=== PATIENT | female | born 2000 | race Caucasian/White ===

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

== ENCOUNTER → 2021-01-07 10:12 | Outpatient (BNVA) | payer BC, MEDICAID, SELFPAY | PROVIDERS: PCP Family Medicine; Visit Provider Obstetrics & Gynecology | DX: O99.013 Anemia complicating pregnancy, third trimester (principal); O26.849 Uterine size-date discrepancy, unspecified trimester; B00.9 Herpesviral infection, unspecified; O98.519 Other viral diseases complicating pregnancy, unspecified trimester; F32.9 Major depressive disorder, single episode, unspecified; Z28.3 Underimmunization status; A74.9 Chlamydial infection, unspecified; O99.340 Other mental disorders complicating pregnancy, unspecified trimester; Z3A.00 Weeks of gestation of pregnancy not specified | CPT/HCPCS: 81000 ==

== ENCOUNTER → 2021-01-20 13:57 | Outpatient (BNVA) | payer BC, MEDICAID, SELFPAY | PROVIDERS: PCP Family Medicine; Visit Provider Obstetrics & Gynecology | DX: O36.5990 Maternal care for other known or suspected poor fetal growth, unspecified trimester, not applicable or unspecified (principal); A74.9 Chlamydial infection, unspecified; O99.013 Anemia complicating pregnancy, third trimester; Z3A.00 Weeks of gestation of pregnancy not specified | CPT/HCPCS: 81000; 87081; 87491 ==

== ENCOUNTER → 2021-01-23 10:50 | Outpatient (BNVA) | payer BC, MEDICAID, SELFPAY | PROVIDERS: PCP Family Medicine; Visit Provider Obstetrics & Gynecology | DX: Z34.90 Encounter for supervision of normal pregnancy, unspecified, unspecified trimester (principal) | CPT/HCPCS: 81000 ==

== ENCOUNTER → 2021-01-27 08:47 | Outpatient (BNVA) | payer BC, MEDICAID, SELFPAY | PROVIDERS: PCP Family Medicine; Visit Provider Obstetrics & Gynecology | DX: O36.5990 Maternal care for other known or suspected poor fetal growth, unspecified trimester, not applicable or unspecified (principal) | CPT/HCPCS: 81000 ==

== ENCOUNTER → 2021-02-03 08:00 | Outpatient (BNVA) | payer BC, MEDICAID, SELFPAY | PROVIDERS: PCP Family Medicine; Visit Provider Obstetrics & Gynecology | DX: O36.5930 Maternal care for other known or suspected poor fetal growth, third trimester, not applicable or unspecified (principal); O99.820 Streptococcus B carrier state complicating pregnancy; O99.013 Anemia complicating pregnancy, third trimester; O98.519 Other viral diseases complicating pregnancy, unspecified trimester; F32.9 Major depressive disorder, single episode, unspecified; O99.340 Other mental disorders complicating pregnancy, unspecified trimester; B00.9 Herpesviral infection, unspecified; Z28.3 Underimmunization status; A74.9 Chlamydial infection, unspecified; Z3A.00 Weeks of gestation of pregnancy not specified | CPT/HCPCS: 81000 ==

== ENCOUNTER 2021-02-05 20:44 | Inpatient (IN) | payer BC, MEDICAID, SELFPAY ==
[2021-02-05 20:21] VITALS: BMI 24.2
[2021-02-05 20:23] VITALS: BP 133/80; PULSE 90
[2021-02-05 20:28] VITALS: TEMP 36.8
[2021-02-05 20:41] VITALS: RESP 18
[2021-02-05] MEDS: ampicillin 2,000 MG in sodium chloride 0.9% (plus) 50 ML 100 MG IV (21:15)
[2021-02-05] MEDS: dextrose 5%-lactated ringers 1,000 ML 125 ML IV (21:16)
[2021-02-05 21:22] LABS: Basophils # 0.1 10^3/uL (0.0-0.1); Basophils % 0.3 %; Eosinophils # 0.2 10^3/uL (0.0-0.8); Eosinophils % 0.9 %; Hematocrit 35.5 % (37.0-47.0); Hemoglobin 11.9 g/dL (11.5-15.3); Lymphocytes # 3.5 10^3/uL (1.5-6.5); Lymphocytes % 19.7 %; Mean Corpuscular HGB Conc 33.5 g/dL (30.0-36.0); Mean Corpuscular Hemoglobin 30.7 pg (28.0-34.0); Mean Corpuscular Volume 91.7 fL (81-99); Mean Platelet Volume 11.1 fL (7.4-10.4); Monocytes # 1.1 10^3/uL (0.2-0.9); Monocytes % 6.3 %; Neutrophils % 72.2 %; Nucleated Red Blood Cells % 0 %; Platelet Count 263 10^3/cmm (130-400); Red Blood Count 3.87 10^6/uL (4.1-5.3); Red Cell Distribution Width 14.6 % (12.1-15.1); White Blood Count 17.9 10^3/uL (4.5-13.0)
[2021-02-05 21:53] VITALS: BP 120/74; PULSE 76; TEMP 36.7
[2021-02-05 23:41] VITALS: BP 120/79; PULSE 72; TEMP 36.6
[2021-02-06] VITALS (46 sets, daily range): BP systolic 102–162; BP diastolic 53–102; PULSE 65–121; RESP 15–20; TEMP 36.4–37.9; O2SAT 93–100
[2021-02-06] MEDS: ampicillin 1,000 MG in sodium chloride 0.9% (plus) 50 ML 100 MG IV ×2 (00:21→04:01)
[2021-02-06] MEDS: oxytocin 30 UNIT/500 ML BAG IV (02:08)
[2021-02-06] MEDS: lactated ringers 1,000 ML 999 ML IV (02:16)
[2021-02-06] MEDS: fentaNYL 50 mcg/mL INJ 2mL IV (03:07)
--- NOTE | 2021-02-06 03:42 | ANES.PREANE2 ---
Pre-Anesthetic Assessment Pre-Anesthetic Assessment: Height/Weight: Height 1.5 m Weight 54.431 kg Temp Pulse Resp BP Pulse Ox 97.9 F 88 20 H 141/84 100 02/05/21 23:41 02/06/21 03:40 02/06/21 03:07 02/06/21 03:38 02/06/21 03:40 Social: Social History: No alcohol and No tobacco Exam: Pre-Anes Outpt Exam: alert and oriented x 3 Airway: Submandibular: WNL Cervical ROM: WNL MP: 2 History/ROS: No significant history except as noted GI: Comments: gastroschisis as child Neuropsych: Neuropsych: Depression Anesthetic Plan: ASA status: 2 Anesthesia: Anesthesia Evaluation and Regional (specify below) Other: labor epidural Risk of > 500 ml blood loss (7ml/kg in children): No Meds/Allergies Current Medications: Current Medications Generic Name Dose Route Start Last Admin Trade Name Freq PRN Reason Stop Dose Admin Fentanyl 25 - 100 mcg 02/06/21 02:54 02/06/21 03:07 Fentanyl 50 Mcg/ Ml Inj 2ml IV 25 mcg Q1H PRN Administration SEVERE PAIN Ampicillin Sodium 1,000 mg/ 50 mls @ 100 mls/ hr 02/06/21 00:45 02/06/21 00:21 Sodium Chloride IV 100 mls/hr Q4H PURVI Administration Protocol Dextrose/Lactated Ringer's 1,000 mls @ 125 m ls/hr 02/05/21 20:41 02/05/21 22:55 Dextrose 5%-Lact ated Ringers IV 0 mls/hr .Q8H PRN Infusion labor Lactated Ringer's 1,000 mls @ 999 m ls/hr 02/06/21 01:45 02/06/21 02:16 Lactated Ringers IV 999 mls/hr .Q1H1M PRN Administration See label comment s Oxytocin 30 unit in 500 ml s @ 1 mls/hr 02/06/21 01:45 02/06/21 02:08 Pitocin IV 1 milliunit/min .Q24H PURVI 1 mls/hr Administration Protocol 1 MILLIUNIT/MIN PFSH Anesthesia PFSH: Medical History 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 Denies any problems since then. No pertinent past medical history Denies diabetes, asthma, hypertension, seizures, DVT/PE PMD: none Surgical History History of intestinal surgery (~2000) born with gastroschisis--- had 3 abdominal surgeries to repair this when she was under 2-year-old. Denies any residual problems. History of orthopedic surgery 2019-fracture of left lower leg which was repaired surgically. Family History Mother Diabetes Hyperlipidemia Hypertension Denies family history of Colon cancer Ovarian cancer Heart disease Breast cancer Family history of thyroid problem Uterine cancer Stroke Social History Additional social history: - Tobacco use: Never Alcohol use: Never Drug use: Never Female Reproductive History: : 2 Data Anesthesia CBC & Chem 7: 02/05/21 21:00 Other Labs: Laboratory Results - last 48 hr 02/05/21 21:00 WBC 17.9 H RBC 3.87 L Hgb 11.9 Hct 35.5 L MCV 91.7 MCH 30.7 MCHC 33.5 RDW 14.6 Plt Count 263 MPV 11.1 H Neut % (Auto) 72.2 Lymph % (Auto) 19.7 [place] % (Auto) 6.3 Eos % (Auto) 0.9 Baso % (Auto) 0.3 Neut # (Auto) 12.90 H Lymph # (Auto) 3.5 [place] # (Auto) 1.1 H Eos # (Auto) 0.2 Baso # (Auto) 0.1 Nucleated RBC % (auto) 0 Nucleated RBCs # 0.0 Cardiac Studies: No Data to Display Anesthesia Procedures Date of Procedure: 02/06/21 Procedure Narrative: LABOR EPIDURAL Epidural: Time Out Performed: Yes Consents Signed: Procedure Consent Consent: from patient Lumbar Level: L3-L4 Epidural position: sitting Epidural procedure: sterile prep of area, 1% lidocaine to numb the area, 18 g needle, neg for paresthesia, test dose given, 1.5% xylocaine 1:200k epi (3 ML), 0.2% Ropivacaine bolus ml (5 ML), placed PCEA, no systemic response, sterile dressing applied, L.U.D. no apparent complications and 0.2% Ropiavacaine @ mls/hr (11) Additional Comments: R/B DISCUSSED. PATIENT WISHES TO PROCEED. SITS ON BED. STERILE PREP AND DRAPE WITH CHLORAPREP. LOSS OF RESISTANCE, CATH INSERTED TO 14 EASILY, NEG TEST DOSE, PT REPORTS PAIN RELIEF WITH TEST DOSE. BOLUS GIVEN. TOLERATED WELL. LOT [id number] EXP 2021-04-14
--- NOTE | 2021-02-06 04:56 | PM.DELIVERY ---
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 GBS prophylaxis was started. She received 3 doses of Ampicillin prior to delivery. She was given about 8 hours to labor on her own, but had no cervical change. Pitocin was begun a 1 Meq. She had complete cervical dilation Delivery: The patient had complete cervical dilation and as I was attempting to put on my gloves, seconds after entering the room, the head delivered. The nurse supported the head briefly and the body followed atraumatically making this a nurse delivery with physician present. The baby was vigorous at . She was placed onto the mother's abdomen and the cord clamped and cut. Inspection revealed a superficial supraurethral tear only. An intact placenta delivered spontaneously. Apgars on baby 8 t one minute and 9 at five minutes. weight 5#4oz. Mother and infant were stable post delivery Coding Level of Care Code Acute Lather Apprentice for Gonsalo Velez
--- NOTE | 2021-02-06 07:50 | PC.NURSE ---
note Mom has short mildly retractive nipples. Her nipples are compressible and elastic. Helped her with football hold and asymmetric latch. Baby seemed to be nursing well. Provided Understanding book and contact information.
--- NOTE | 2021-02-06 08:56 | PC.NURSE ---
PRECIPITOUS DELIVERY This patient arrived to the OB floor at 2009 on 02/05/21 complaining of leaking of fluid since approximately 1600 that day. SVE was completed upon arrival and patient was grossly ruptured with a positive nitrazine result and SVE of /0 station. Patient denied feeling any pain or contractions at this time. Patient was to be scheduled for an induction on 02/[address] Guillaume at 2034 - patient was to be admitted and intermittently monitored; if she did not progress on her own we would need to get orders for pitocin. At 13 - patient still denied contractions or mild discomfort but reported some pressure in her lower abdomen. SVE was conducted and 0 with no change. At 120 Patient called out stating that she felt pressure again and SVE completed by Bob De La Garza RN /2 however patient denied wanting anything for pain at this time and contractions were still irregular and palpating mild. At 134 -Dr Guillaume called in for an update and stated that patient could be started on moderate dose pitocin because she was not making change and may have an epidural when desired. Patient was educated by this nurse and Katerina De La Garza RN on how long it takes to get the epidural if she was wanting one and the process it takes. Patient was still unsure. At 239 - patient called out and reported that her pain had dramatically increased and she requested something for pain. She was putting herself into hands and knees in the bed and a FSE was applied with the SVE - /[address] Guillaume was called at that time to make aware of patient's affect seeming like she could transition at any point. Dr. Guillaume ordered that patient could have fentanyl protocol while she waits to get her epidural. Patient received her epidural and pump was turned on at 330. She was comfortable and resting. At 5 patient had a variable deceleration and this RN was at bedside and repositioned patient. At 406, patient had another variable decel and SVE was done. SVE was odd as cervix was thick from 12 to 6o'clock on right side, but was tucked back on side of head up against pelvic bone on left side. Approximately 6cm, patient was placed in left lateral with peanut ball to see if the cervix could be reduced on right side or that left side could be reached if there was movement of head with reposition. Patient stated that she was comfortable in that position and that she would try to rest. At 0425 - patient called nurse to her room and was moaning in pain stating that she had a lot more pressure. SVE - 10/100/+3. this nurse stayed at bedside and instructed Royer Huitron CST to call Dr. Guillaume and tell her we need her right now for delivery and SVE. At 0425 - Katerina de la garza called with report and was on her way. Patient was breathing through contractions. At 0436 - head was starting to have a small crown - this RN asked Krystle Bartholomew RN to call Dr. Guillaume and inquire whereabouts due to delivery being within next contraction or two. Dr. Guillaume stated she was in the stairwell at 0436 and arrived to floor at that same time. At 0437 she arrived into room and was attempting to get her gloves on when baby's head delivered at 0438, followed by a total delivery by Bob De La Garza RN with Dr. Guillaume there at bedside. Baby was placed on mom's chest. Dr. Guillaume clamped and cut the cord and baby. Baby's apgars were 8, 9.
[2021-02-06] MEDS: docusate sodium 100 mg Capsule PO ×2 (09:30→20:17)
[2021-02-06] MEDS: ibuprofen 800 mg tablet PO ×3 (09:31→20:17)
[2021-02-06] MEDS: prenatal vitamin Capsule 1 CAP PO (09:31)
[2021-02-06 19:11] LABS: Hematocrit 32.6 % (37.0-47.0); Hemoglobin 10.9 g/dL (11.5-15.3); Mean Corpuscular HGB Conc 33.4 g/dL (30.0-36.0); Mean Corpuscular Volume 92.6 fL (81-99); Platelet Count 222 10^3/cmm (130-400); Red Blood Count 3.52 10^6/uL (4.1-5.3); Red Cell Distribution Width 14.7 % (12.1-15.1); White Blood Count 23.1 10^3/uL (4.5-13.0)
[2021-02-07 06:15] VITALS: BP 108/65; PULSE 83
[2021-02-07] MEDS: lanolin oint 7 gm 1 APPLIC TOPICAL (06:39)
[2021-02-07 06:43] VITALS: RESP 18
[2021-02-07] MEDS: ibuprofen 800 mg tablet PO ×2 (10:03→16:33)
[2021-02-07] MEDS: docusate sodium 100 mg Capsule PO (10:03)
[2021-02-07] MEDS: prenatal vitamin Capsule 1 CAP PO (10:03)
--- NOTE | 2021-02-07 12:34 | P.DS_ITS ---
Discharge Providers DRIVER LICENSE EXAMINER Date of Admission: 02/05/21 20:44 Date of Discharge: 02/07/21 Attending Provider at Admission: Shaila Guillaume MD Attending Provider at Discharge: Jonah Beal MD Primary DRIVER LICENSE EXAMINER: Clark Lr MD Primary Care Provider: Madhavi Be MD Diagnoses at Discharge Discharge Diagnosis (1) Small for gestational age fetus affecting mother, delivered: Status: Acute (2) Group B Streptococcus carrier, delivered, current hospitalization: Status: Acute (3) Anemia during , delivered, current hospitalization: Status: Acute (4) Mental disorders of mother, with delivery: Status: Acute Reason for Visit Reason for Visit: POSS [facility] Hospital Course Hospital Course Patient is a 21-year-old female 2, para 0-0-1-0 with an LMP of 05/14/2020 and an EDC of 6 02/18/2021 based on LMP and consistent with 19-week ultrasound, which placed her at 38-2/7 weeks gestation at the time of delivery. Her care has been mainly provided by Dr. Lr. Her has been complicated by depression, anemia, and possible intrauterine growth restriction. She had also been found to be positive for GBS. She had a history of genital herpes and was on suppression with valacyclovir. She presented to labor and delivery in the evening of 02/05/2021 complaining of possible leaking fluid since approximately since approximately 16:00 on 02/05. She was found to be ruptured and was 2 cm and 95% effaced on admission. She was started on ampicillin for group B strep prophylaxis due to positive GBS status. She was monitored, but did not make any significant cervical change and as a result Pitocin was started at approximately 02:00 on 02/06/2021. By 02:42, she had started making cervical change and was then 4 cm dilated. She had epidural placed at approximately 03:30. By 04:11 she was 6 cm dilated and was completely dilated by 04:25. She delivered at 04:38 as a spontaneous vaginal delivery of an occiput anterior female infant over an intact perineum under epidural anesthesia. Baby weighed 5 pounds 4 ounces (2380 g) with length of 19 inches and Apgars of 8 at 1 minute an d 9 at 5 minutes. Mother and both did well following delivery. Day 1 Mother was without complaints. She was tolerating a regular diet without nausea or vomiting. Pain was well controlled on oral medications. She reported ambulating without lightheadedness or dizziness. She denied shortness of breath or chest pains. She denied problems with urination. She reported her bleeding had slowed. She was bottlefeeding. Physical exam: See below Plan Patient is being discharged with plan to room-in with baby (baby is not being released at this time due to small size). Discharge instructions were discussed with her. She was instructed to continue iron daily due to the anemia, she was also instructed to continue the fluoxetine, valacyclovir, and vitamins. She is to follow-up in the office with Dr. Lr for her 6 weeks exam. Information Peripartum Data: Delivery Method: Vaginal [place]: 1: Gender: Female Additional [place] Information: Baby weighed 5 pounds 4 ounces (2380 g) with length of 19 inches and Apgars of 8 at 1 minute and 9 at 5 minutes. Physical Exam Const: COMMON NORMALS: no acute distress, average body habitus, alert and well nourished GENERAL APPEARANCE: well developed ORIENTATION/CONSCIOUSNESS: Yes oriented to person, Yes oriented to place and Yes oriented to time Resp: COMMON NORMALS: normal respiratory effort and clear to auscultation bilaterally AUSCULTATION: clear to auscultation bilaterally Cardio: COMMON NORMALS: regular rate, regular rhythm, No gallops present (Cardio) and No rub (Cardio) RATE: regular rate RHYTHM: regular rhythm GI: COMMON NORMALS: Soft to palpation, non-tender, No hepatosplenomegaly present and no masses (Except for uterus) AUSCULTATION: Yes normoactive bowel sounds PALPATION: Yes Soft to palpation, Yes No hepatosplenomegaly present and No Hernia present : EXTERNAL FEMALE EXAM: No Hernia present Extremity: COMMON NORMALS: no calf tenderness NARRATIVE EXTREMITY EXAM: Trace to 1+ lower extremity edema bilaterally Neuro: SENSORIUM/ORIENTATION: Yes alert, Yes oriented to person, Yes oriented to place and Yes oriented to time Psych: COMMON NORMALS: normal affect MOOD & AFFECT: Yes euthymic mood Urinary Catheter Management^: Espinal: Cath Placed During This Visit: yes, but has since been removed by the nurse Reason for Continuing Indwelling Catheter: Required Immobilization for Trauma or Surgery or Anesthesia Urinary Catheter Date of Insertion: 02/06/21 Urinary Catheter Time of Insertion: 04:00 Date Urinary Catheter Removed: 02/06/21 Time Urinary Catheter Discontinued: 04:46 Discharge Data Data Completed and Pending: Labs from last 24 hours 02/06/21 18:24 WBC 23.1 H RBC 3.52 L Hgb 10.9 L Hct 32.6 L MCV 92.6 MCH 31.0 MCHC 33.4 RDW 14.7 Plt Count 222 MPV 11.0 H Vitals: Last Vital Signs Temp 98.3 F 02/06/21 21:56 Pulse 83 02/07/21 06:15 Resp 18 02/07/21 06:43 BP 108/65 02/07/21 06:15 Pulse Ox 99 02/06/21 21:56 Discharge Plan Discharge Patient Disposition: Home Condition: Stable Prescriptions: Continued prenat.vits,becca,hop-aeds-rpphk Tablet 1 tab PO DAILY RF: 0 valacyclovir [Valtrex] 500 mg tablet 500 mg PO BID Qty: 60 RF: 12 fluoxetine [Prozac] 20 mg capsule 20 mg PO DAILY Qty: 30 RF: 3 Changed ferrous sulfate 325 mg (65 mg iron) tablet,delayed release (DR/EC) 325 mg PO DAILY Qty: 0 RF: 0 Discharge Orders: Discharge Order (Routine); Ordered 02/07/21 Ordered By: Jonah Beal Referrals: Clark Fitzgerald MD [Physician] - 03/23/21 10:00 am ( exam) Discharge Diet: Regular Discharge Activity: Limit activity as instructed Patient Instructions: , Depression (GEN), Perineal Care (DC), and Nipple Soreness (DC), Breast Fullness Versus Breast Engorgement (DC), and Plugged Ducts (DC), How to Increase Your Milk Supply (DC), and Your Diet (DC), Breast Care for the Breast Feeding Mother (DC), Pre-eclampsia and Eclampsia (DC), Bleeding (DC), OB Discharge Report, OB Food/Drug Interaction Guide, OB Home Care, OB Proud Parent Packet, OB Vaginal Deliveries, Abnormal Bleeding Activity Restrictions/Additional Instructions: May take drfk-zro-rpwxppq ibuprofen 200 mg, 3 tablets 4 times a day or 4 tablets 3 times a day, as needed for pain. May take skxy-dse-xarzbvw Tylenol as needed for pain. Discharge Attestations DRIVER LICENSE EXAMINER Time Spent in Discharge Care*: less than 30 min Coding Level of Care Code Acute Veterinary Medicine Scientist for Chg Fwd Diagnoses Small for gestational age fetus affecting mother, delivered O36.5990 Group B Streptococcus carrier, delivered, current hospitalization O99.824 Anemia during , delivered, current hospitalization O99.02 Mental disorders of mother, with delivery O99.344
[2021-02-07 13:26] VITALS: BP 147/72; PULSE 92
[2021-02-07 16:40] VITALS: BP 125/76; PULSE 88
[2021-02-07] MEDS: measles,mumps,rubella pf Vial (w/diluent) 0.5 ML SUBCUT (17:18)
[2021-02-07 17:30] VITALS: BP 125/76; PULSE 88; RESP 17; TEMP 36.7
== END 2021-02-07 17:30 | disposition home or self-care (01) | DRG 806 ==
LOC: OPOB 02-06 07:38
PROVIDERS: Admitting Provider Obstetrics & Gynecology; PCP Family Medicine; Visit Provider Obstetrics & Gynecology
DX: O36.5930 Maternal care for other known or suspected poor fetal growth, third trimester, not applicable or unspecified (principal); O98.32 Other infections with a predominantly sexual mode of transmission complicating childbirth; Z37.0 Single live birth; O42.92 Full-term premature rupture of membranes, unspecified as to length of time between rupture and onset of labor; O99.824 Streptococcus B carrier state complicating childbirth; O99.02 Anemia complicating childbirth; D64.9 Anemia, unspecified; O99.344 Other mental disorders complicating childbirth; F32.9 Major depressive disorder, single episode, unspecified; A60.00 Herpesviral infection of urogenital system, unspecified; Z3A.38 38 weeks gestation of pregnancy; Z23 Encounter for immunization
CPT/HCPCS: 36415; 51702; 59025; 59409; 83986; 85025; 85027; 90707; 96372; 99211; J0290; J2795; J3010

== ENCOUNTER → 2021-03-23 11:10 | Outpatient (BNVA) | payer BC, MEDICAID, SELFPAY | PROVIDERS: PCP Family Medicine; Visit Provider Obstetrics & Gynecology | DX: O99.340 Other mental disorders complicating pregnancy, unspecified trimester (principal); F32.9 Major depressive disorder, single episode, unspecified | CPT/HCPCS: 81025 ==

== ENCOUNTER → 2021-10-29 12:13 | Outpatient (BNVA) | payer BC, MEDICAID, SELFPAY | PROVIDERS: PCP Family Medicine; Visit Provider Nurse Practitioner Family | DX: Z11.52 Encounter for screening for COVID-19 (principal); Z20.822 Contact with and (suspected) exposure to COVID-19 | CPT/HCPCS: 87635 ==

== ENCOUNTER → 2021-11-20 13:22 | Outpatient (BNVA) | payer BC, MEDICAID, SELFPAY | PROVIDERS: PCP Family Medicine; Visit Provider Nurse Practitioner Family | DX: J03.90 Acute tonsillitis, unspecified (principal); R05.9 Cough, unspecified; Z20.822 Contact with and (suspected) exposure to COVID-19 | CPT/HCPCS: 87635 ==

== ENCOUNTER → 2022-02-11 11:19 | Outpatient (BNVA) | payer BC, SELFPAY | PROVIDERS: PCP Family Medicine; Visit Provider Psychiatry & Neurology Psychiatry | DX: F41.9 Anxiety disorder, unspecified; F32.9 Major depressive disorder, single episode, unspecified; F33.0 Major depressive disorder, recurrent, mild | CPT/HCPCS: 90792 ==

== ENCOUNTER → 2022-11-10 17:17 | Outpatient (BNVA) | payer BC, MEDICAID, SELFPAY | PROVIDERS: PCP Family Medicine; Visit Provider Nurse Practitioner Family | DX: Z11.3 Encounter for screening for infections with a predominantly sexual mode of transmission (principal) | CPT/HCPCS: 81003; 86592; 87491; 87591; 87661; 87806 ==

== ENCOUNTER → 2022-12-22 15:39 | Outpatient (BNVA) | payer BC, MEDICAID, SELFPAY | PROVIDERS: PCP Family Medicine; Visit Provider Nurse Practitioner Family | DX: N93.9 Abnormal uterine and vaginal bleeding, unspecified (principal) | CPT/HCPCS: 80053; 84146; 84439; 84443; 84702; 85025 ==

== ENCOUNTER → 2023-02-09 11:05 | Outpatient (BNVA) | payer BC, MEDICAID, SELFPAY | PROVIDERS: PCP Family Medicine; Visit Provider Obstetrics & Gynecology | DX: N93.9 Abnormal uterine and vaginal bleeding, unspecified (principal) | CPT/HCPCS: 76830 ==

== ENCOUNTER → 2023-04-18 11:27 | Outpatient (BNVA) | payer BC, MEDICAID, SELFPAY | PROVIDERS: PCP Family Medicine; Visit Provider Nurse Practitioner Family | DX: R10.31 Right lower quadrant pain (principal); N39.0 Urinary tract infection, site not specified | CPT/HCPCS: 81003; 87077; 87086; 87184 ==

== ENCOUNTER → 2024-01-31 09:00 | Outpatient (BNVA) | payer BC, MEDICAID, SELFPAY | PROVIDERS: PCP Family Medicine; Visit Provider Nurse Practitioner Women's Health | DX: N92.6 Irregular menstruation, unspecified (principal) | CPT/HCPCS: 81025 ==

== ENCOUNTER → 2024-02-07 12:23 | Outpatient (BNVA) | payer BC, MEDICAID, SELFPAY | PROVIDERS: PCP Family Medicine; Visit Provider Nurse Practitioner Women's Health | DX: Z34.90 Encounter for supervision of normal pregnancy, unspecified, unspecified trimester (principal); Z3A.01 Less than 8 weeks gestation of pregnancy | CPT/HCPCS: 76801 ==

== ENCOUNTER → 2024-02-14 07:55 | Outpatient (BNVA) | payer BC, MEDICAID, SELFPAY | PROVIDERS: PCP Family Medicine; Visit Provider Nurse Practitioner Women's Health | DX: Z34.90 Encounter for supervision of normal pregnancy, unspecified, unspecified trimester (principal) | CPT/HCPCS: 80307; 84315; 84439; 84443; 84481; 86762; 86803; 86850; 86900; 87086; 87340; 87491; 87591; 87806 ==

== ENCOUNTER → 2024-02-28 07:59 | Outpatient (BNVA) | payer BC, MEDICAID, SELFPAY | PROVIDERS: PCP Family Medicine; Visit Provider Obstetrics & Gynecology | DX: Z34.91 Encounter for supervision of normal pregnancy, unspecified, first trimester (principal); Z3A.09 9 weeks gestation of pregnancy | CPT/HCPCS: 84315; 88175 ==

== ENCOUNTER → 2024-03-19 16:31 | Outpatient (BNVA) | payer BC, MEDICAID, SELFPAY | PROVIDERS: PCP Family Medicine; Visit Provider Nurse Practitioner Family | DX: N39.0 Urinary tract infection, site not specified (principal) | CPT/HCPCS: 81003; 87086 ==

== ENCOUNTER → 2024-05-07 09:15 | Outpatient (BNVA) | payer BC, MEDICAID, SELFPAY | PROVIDERS: PCP Family Medicine; Visit Provider Obstetrics & Gynecology | DX: Z34.92 Encounter for supervision of normal pregnancy, unspecified, second trimester (principal); Z3A.21 21 weeks gestation of pregnancy | CPT/HCPCS: 76805 ==

== ENCOUNTER → 2024-06-20 08:15 | Outpatient (BNVA) | payer BC, MEDICAID, SELFPAY | PROVIDERS: PCP Family Medicine; Visit Provider Obstetrics & Gynecology | DX: Z34.90 Encounter for supervision of normal pregnancy, unspecified, unspecified trimester (principal); Z3A.00 Weeks of gestation of pregnancy not specified | CPT/HCPCS: 82950; 84315 ==

== ENCOUNTER → 2024-07-02 13:19 | Outpatient (BNVA) | payer BC, MEDICAID, SELFPAY | PROVIDERS: PCP Family Medicine; Visit Provider Obstetrics & Gynecology | DX: Z34.93 Encounter for supervision of normal pregnancy, unspecified, third trimester (principal); Z3A.30 30 weeks gestation of pregnancy | CPT/HCPCS: 76816 ==

== ENCOUNTER → 2024-07-18 07:50 | Outpatient (BNVA) | payer BC, MEDICAID, SELFPAY | PROVIDERS: PCP Family Medicine; Visit Provider Obstetrics & Gynecology | DX: Z34.90 Encounter for supervision of normal pregnancy, unspecified, unspecified trimester (principal); Z3A.00 Weeks of gestation of pregnancy not specified | CPT/HCPCS: 84315 ==

== ENCOUNTER 2024-08-13 19:33 | Emergency (ER) | payer BC, MEDICAID, SELFPAY ==
[2024-08-13 19:47] VITALS: BP 115/68; PULSE 92; TEMP 36.7; O2SAT 99; BMI 24.0
--- NOTE | 2024-08-13 19:59 | XRR_ITS ---
PROCEDURE INFORMATION: Exam: XR Left Hand Exam date and time: 08/13/2024 8:09 PM Age: 24 years old Clinical indication: Injury or trauma; Other: Smashed lt pinky finger; Blunt trauma (contusions or hematomas); Left; Little finger; Additional info: Smash inj TECHNIQUE: Imaging protocol: Radiologic exam of the left hand. Views: 3 or more views. COMPARISON: No relevant prior studies available. FINDINGS: Bones/joints: Normal. Soft tissues: Normal. XR/XR hand LT min 3V* [id number] IMPRESSION: No acute findings.
--- NOTE | 2024-08-13 20:03 | W.ED.EXTPRO ---
HPI - Extremity Problem General: Chief complaint: Extremity Injury, Upper Stated complaint: Left hand injury Time Seen by Provider: 08/13/24 19:35 Source: patient Mode of arrival: ambulatory Limitations: no limitations History of Present Illness: Patient is a 24-year-old female presenting to the emergency department complaining of left hand injury onset prior to arrival. Patient smashed her hand in a car door, is reporting pain to the distal left pinky. Also laceration reported to flexor aspect of left pinky, no active bleeding at this time. States she is having some numbness distally. No other injuries reported, is reporting pain with range of motion. MD Complaint: extremity pain Onset (ago): hour(s) Pain Consistency: constant Location: left and upper extremity (Pinky finger) Radiation: distal Exacerbating factors: range of motion Associated symptoms: Deny chest pain, fever(s) or rash Related Data Home Medications Medication Instructions Recorded Confirmed vits no.126-ferrous fum tab PO DAILY 01/31/24 08/06/24 28 mg iron-folic acid 800 mcg tablet (Classic ) acetaminophen 325 mg capsule 325 mg PO QID PRN 02/14/24 08/06/24 (Tylenol) diphenhydramine HCl 25 mg tablet 25 mg PO ONCE PRN 08/06/24 08/06/24 (Benadryl Allergy) Previous Rx's Medication Instructions Recorded lidocaine 5 % topical cream 1 applic topical BID PRN pain 02/14/24 #14.17 grams sertraline 25 mg tablet (Zoloft) 25 mg PO DAILY #30 tabs 03/29/24 Allergies Allergy/AdvReac Type Severity Reaction Status Date / Time alcohol AdvReac Unknown She said Verified 08/13/24 19:52 she can feel a reaction in her throat. Review of Systems General: Reports: 10 or more systems reviewed and unremarkable except in HPI and below Const: Denies: fever(s) or chills Card: Denies: chest pain Resp: Denies: dyspnea or productive cough GI: Denies: abdominal pain, nausea, vomiting or diarrhea : Denies: flank pain Musc: Reports: extremity pain (Left pinky) and limited range of motion (Left pinky finger); Denies: neck pain, back pain, extremity swelling, joint pain, joint swelling, joint redness, joint warmth or muscle weakness Skin/Breast: Denies: rash Neuro: Reports: numbness in extremities (Distal left pinky); Denies: headache(s) or weakness in extremities PFSH ED PFSH: Medical History Anxiety Anxiety and depression No pertinent past medical history Denies diabetes, asthma, hypertension, seizures, DVT/PE PMD: none 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 Denies any problems since then. Surgical History History of orthopedic surgery 2019-fracture of left lower leg which was repaired surgically. History of intestinal surgery (~2000) born with gastroschisis--- had 3 abdominal surgeries to repair this when she was under 2-year-old. Denies any residual problems. Family History Mother Diabetes Hyperlipidemia Hypertension Denies family history of Colon cancer Ovarian cancer Heart disease Breast cancer Family history of thyroid problem Uterine cancer Stroke Social History Smoking and tobacco/nicotine status: never used tobacco/nicotine Substance/Drug Use: never Additional social history: - Physical Exam Const: COMMON NORMALS: no acute distress, patient oriented x3, no limitations, healthy appearing, alert and well nourished HENMT: COMMON NORMALS: normocephalic and atraumatic HEAD & SCALP: normocephalic and atraumatic Neck/C-Spine: COMMON NORMALS: full ROM, supple and no meningeal signs Resp: COMMON NORMALS: normal respiratory effort, No use of accessory muscles and clear to auscultation bilaterally AUSCULTATION: clear to auscultation bilaterally Cardio: COMMON NORMALS: regular rate and regular rhythm RATE: regular rate RHYTHM: regular rhythm Extremity: COMMON NORMALS: capillary refill normal, no joint enlargement and no clubbing, cyanosis or edema NARRATIVE EXTREMITY EXAM: Tenderness to palpation of the left fifth DIP, limited active and passive range of motion with this digit. No other palpable tenderness of the left hand or wrist. Neuro: COMMON NORMALS: patient oriented x3, moves all extremities, no focal motor deficits and no sensory deficits noted SENSORIUM/ORIENTATION: Yes alert MENINGEAL SIGNS: Yes no meningeal signs Skin: NARRATIVE SKIN EXAM: Small laceration to flexor aspect of distal left pinky finger, no active bleeding at this time Course Vital Signs: Vital signs: Vital Signs Temperature 98.1 F 08/13/24 19:47 Pulse Rate 92 08/13/24 19:47 Blood Pressure 115/68 08/13/24 19:47 Pulse Oximetry 99 08/13/24 19:47 Oxygen Delivery Me thod Room Air 08/13/24 19:47 MDM - Extremity (Nontraumatic) Medical Decision Making Patient injured her left pinky finger after slamming it in a car door. Had some limited range of motion on exam, small laceration to distal flexor aspect of left finger. X-ray did not demonstrate any acute findings. The laceration, after cleaning, did not appear to benefit from any suture closure. Conservative therapy discussed, patient discharged home at this time. Lab Data Radiology Impressions Hand X-Ray 08/13/24 19:59 IMPRESSION: No acute findings. All radiology interpretation(s) finalized by discharge Discharge Plan Discharge Patient Disposition: Home Clinical Impression: Contusion of left little finger Condition: Stable Prescriptions: No Action Classic 28 mg iron- 800 mcg tablet PO DAILY acetaminophen [Tylenol] 325 mg capsule 325 mg PO QID PRN lidocaine 5 % cream 1 applic topical BID PRN (Reason: pain) Qty: 14.17 0RF diphenhydramine HCl [Benadryl Allergy] 25 mg tablet 25 mg PO ONCE PRN sertraline [Zoloft] 25 mg tablet 25 mg PO DAILY Qty: 30 12RF Discharge Orders: Discharge ED (Routine); Ordered 08/13/24 Ordered By: Corey Shipley Referrals: Madhavi Be MD [Primary Care Provider] - Patient Instructions: Contusion in Adults (ED) Activity Restrictions/Additional Instructions: May apply topical Neosporin to your finger wound. Ice for added relief. Tylenol for pain. Range of motion as tolerated. Follow-up with your primary care provider for any further evaluation. Return with any new or worsening. Coding Level of Care Code ED Ballistics Expert for Gonsalo Velez
[2024-08-13 20:54] VITALS: BP 116/78; PULSE 90; RESP 16; O2SAT 99
== END 2024-08-13 20:55 | disposition home or self-care (01) ==
PROVIDERS: Emergency Provider Physician Assistant; PCP Family Medicine
DX: S61.217A Laceration without foreign body of left little finger without damage to nail, initial encounter (principal); S60.052A Contusion of left little finger without damage to nail, initial encounter; W23.0XXA Caught, crushed, jammed, or pinched between moving objects, initial encounter
CPT/HCPCS: 73130; 99283

== ENCOUNTER → 2024-08-15 11:19 | Outpatient (BNVA) | payer BC, MEDICAID, SELFPAY | PROVIDERS: PCP Family Medicine; Visit Provider Nurse Practitioner Women's Health | DX: Z34.90 Encounter for supervision of normal pregnancy, unspecified, unspecified trimester (principal) | CPT/HCPCS: 84315; 85025; 87081 ==

== ENCOUNTER 2024-08-22 06:00 | Outpatient (CLI) | payer BC, MEDICAID, SELFPAY ==
--- NOTE | 2024-08-22 09:50 | ANES.PREANE2 ---
Pre-Anesthetic Assessment Height/Weight: Height 1.5 m Epidural Familial anesthetic complications: none Was Beta Radha taken within 24 hours: N/A Was Clonidine taken within 24 hours: N/A Last intake: > 8 hrs Social No alcohol and No tobacco Exam alert, oriented x 3, clear to auscultation bilaterally and regular rate & rhythm Airway Mallampati: Class II Dentition: full Anesthetic Plan ASA status: 2 Anesthesia: Regional (specify below) (Epidural) Risk of > 500 ml blood loss (7ml/kg in children): Yes, adequate IV access and fluids planned Medications/Allergies Home Medications Medication Instructions Recorded Confirmed Last Taken Type vits no.126-ferrous fum tab PO DAILY 01/31/24 08/15/24 Unknown History 28 mg iron-folic acid 800 mcg tablet (Classic ) acetaminophen 325 mg capsule 325 mg PO QID PRN 02/14/24 08/15/24 Unknown History (Tylenol) lidocaine 5 % topical cream 1 applic topical BID PRN pain 02/14/24 08/15/24 Unknown Rx #14.17 grams sertraline 25 mg tablet (Zoloft) 25 mg PO DAILY #30 tabs 03/29/24 08/15/24 Unknown Rx diphenhydramine HCl 25 mg tablet 25 mg PO ONCE PRN 08/06/24 08/15/24 Unknown History (Benadryl Allergy) Allergies Allergy/AdvReac Type Severity Reaction Status Date / Time alcohol AdvReac Unknown She said Verified 08/15/24 09:43 she can feel a reaction in her throat. 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 Denies any problems since then. Surgical History History of orthopedic surgery 2019-fracture of left lower leg which was repaired surgically. History of intestinal surgery (~2000) born with gastroschisis--- had 3 abdominal surgeries to repair this when she was under 2-year-old. Denies any residual problems. Family History Mother Diabetes Hyperlipidemia Hypertension Denies family history of Colon cancer Ovarian cancer Heart disease Breast cancer Family history of thyroid problem Uterine cancer Stroke Social History Smoking and tobacco/nicotine status: never used tobacco/nicotine Substance/Drug Use: never Additional social history: - Data Anesthesia Cardiac Studies: No Data to Display
== END 2024-08-22 23:59 | disposition home or self-care (01) ==
LOC: OPOB 09-17 18:59
PROVIDERS: PCP Family Medicine; Visit Provider Obstetrics & Gynecology
DX: Z34.90 Encounter for supervision of normal pregnancy, unspecified, unspecified trimester (principal)
CPT/HCPCS: 76816; 76820; 84315

== ENCOUNTER → 2024-09-05 10:43 | Outpatient (BNVA) | payer BC, MEDICAID, SELFPAY | PROVIDERS: PCP Family Medicine; Visit Provider Obstetrics & Gynecology | DX: Z53.9 Procedure and treatment not carried out, unspecified reason (principal) | CPT/HCPCS: 84315 ==

== ENCOUNTER 2024-09-06 17:12 | Inpatient (IN) | payer BC, MEDICAID, SELFPAY ==
[2024-09-06] VITALS (19 sets, daily range): BP systolic 103–135; BP diastolic 62–83; PULSE 69–106; RESP 16; TEMP 36.3–36.8; BMI 25.2
[2024-09-06] MEDS: lactated ringers 1,000 ML 999 ML IV (16:53)
[2024-09-06 16:55] LABS: Basophils % 0.2 %; Eosinophils # 0.1 10^3/uL (0.0-0.8); Eosinophils % 0.8 %; Lymphocytes # 2.7 10^3/uL (0.8-4.8); Mean Corpuscular HGB Conc 33.7 g/dL (30-55); Mean Corpuscular Hemoglobin 30.5 pg (27-33); Mean Corpuscular Volume 90.5 fl (85-98); Mean Platelet Volume 9.9 fL (7.4-10.4); Monocytes # 0.9 10^3/uL (0.2-0.9); Monocytes % 5.8 %; Neutrophils # 11.74 10^3/uL (1.8-7.7); Neutrophils % 75.1 %; Nucleated Red Blood Cells % 0 %; Platelet Count 270 10^3/cmm (157-399); Red Cell Distribution Width 12.9 % (12.1-15.1); White Blood Count 15.62 10^3/uL (3.29-11.43)
--- NOTE | 2024-09-06 17:20 | PM.OBGYHP ---
Providers/Chief Complaint Admitting Physician: Christiano Real MD Primary CAKE PRESS OPERATOR: Franck Hardwick MD Primary Care Provider: Madhavi Be MD Chief Complaint: contractions HPI CAKE PRESS OPERATOR History of Present Illness Irena Fuentes is a 24 year old female A1 EDC September 12, 2024 At 39 w 1 d presented to L&D c/o painful uterine contractions no bleeding, fluid leakage no perineal pain or lesions + movements + h/o genital herpes had an epidosde of herpes outbreak at 28 weeks, treated with acyclovir presently on acyclovir one po daily for prophylaxis no c/o perineal pain or lesions Present Details : 3 Para: 1 Labs Rubella: Immune RPR: Negative GBS: Negative Medications/Allergies Home Medications Medication Instructions Recorded Confirmed Last Taken Type vits no.126-ferrous fum 1 tab PO DAILY 01/31/24 09/06/24 Unknown History 28 mg iron-folic acid 800 mcg tablet (Classic ) acetaminophen 325 mg capsule 325 mg PO QID PRN Pain 02/14/24 09/06/24 Unknown History (Tylenol) lidocaine 5 % topical cream 1 applic topical BID PRN pain 02/14/24 09/06/24 Unknown Rx #14.17 grams sertraline 25 mg tablet (Zoloft) 25 mg PO DAILY #30 tabs 03/29/24 09/06/24 Unknown Rx diphenhydramine HCl 25 mg tablet 25 mg PO ONCE PRN Allergy Symptoms 08/06/24 09/06/24 Unknown History (Benadryl Allergy) Allergies Allergy/AdvReac Type Severity Reaction Status Date / Time alcohol AdvReac Unknown She said Verified 09/05/24 08:42 she can feel a reaction in her throat. 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 Denies any problems since then. Surgical History History of orthopedic surgery 2019-fracture of left lower leg which was repaired surgically. History of intestinal surgery (~2000) born with gastroschisis--- had 3 abdominal surgeries to repair this when she was under 2-year-old. Denies any residual problems. Family History Mother Diabetes Hyperlipidemia Hypertension Denies family history of Colon cancer Ovarian cancer Heart disease Breast cancer Family history of thyroid problem Uterine cancer Stroke Social History Smoking and tobacco/nicotine status: never used tobacco/nicotine Substance/Drug Use: never Additional social history: - History History History 3 Term 1 0 Miscarriages/Ectopic 1 Living Children 1 Care MARCY Calculator Estimated Delivery Date Method Current WG Current Estimate 09/12/24 Ultrasound #1 39w 2d Other Estimates 09/04/24 LMP (Uncertain) 40w 3d Specific Issues/Plans H/O HSV -- outbreak at 28 weeks treated with acyclovir, plan to start daily use at 34 weeks ANXIETY --- taking zoloft daily started on 03/29/24, EPDS early : 1 28 weeks: 3 ABNORMAL PAP SMEAR -- ASCUS 02/28/24, plan for follow up in 1 year FUNDAL HEIGHT LOW FOR DATES --- 31 cm at 34 weeks visit, plan for growth ultrasound Vitals/I&O/Wt Last Vital Signs Temp 97.3 F L 09/06/24 17:40 Pulse 106 H 09/06/24 21:24 BP 116/67 09/06/24 21:24 O2 Del Method Room Air 09/06/24 18:49 09/06/24 09/06/24 09/07/24 14:59 22:59 06:59 Intake Total 616.05 / 616.05 Output Total 400 / 400 Balance 216.05 / 216.05 Weight last 48 hrs Weight 125 lb Physical Exam Narrative: Weight 125 lbs; 4?11? VS normal General + pain with uterine contractions; awake, alert, appropriate Lungs: clear Cor: RRR FH 37 cm, cephalic Vulva: no lesions cervix: 7 cm / 90 / 0 Ext: no edema External monitor: + regular uterine contractions heart tracing good variability, + accelerations Data 09/06/24 16:35 Results Labs OB ([facility]): Obstetrics US 08/22/24 Blood Type O Positive 09/06/24 Antibody Screen Negative 09/06/24 Hct 38.0 % (36-47) 09/06/24 Hgb 12.80 g/dL (11.27-16.99) 09/06/24 Rho(D) Type Rh positive 09/06/24 Plt Count 270 10^3/cmm (157-399) 09/06/24 Hep Bs Antigen Non-reactive (Nonreactive) 02/14/24 Hepatitis C Antibody Non-reactive (Nonreactive) 02/14/24 Rubella IgG Antibody 10.3 IU/mL (0.0-10.0) H 02/14/24 HIV 1&2 Ab & HIV 1 Ag Non-reactive (Non-Reactiv) 02/14/24 TSH 1.90 uIU/mL (0.27-4.20) 02/14/24 Free T4 1.08 ng/dL (0.82-1.77) 02/14/24 C.trachomatis RNA (TMA) Not detected (NOT DETECTED) 02/14/24 N.gonorrhoeae RNA (TMA) Not detected (NOT DETECTED) 02/14/24 T. vaginalis Amp RNA Not detected (NOT DETECTED) 02/14/24 Chlamydia/GC Comment See note 02/14/24 Gest Glucose Tolerance 92 mg/dL (70-139) 06/20/24 Hemoglobin A1c 4.7 % (4.0-6.0) 12/21/22 Ser , Semi-Qnt 1.00 mIU/mL 12/22/22 HCG, Qual Positive (Negative) H 01/31/24 Urine Opiates Screen Negative ng/mL (Negative) 02/14/24 Ur Barbiturates Screen Negative ng/mL (Negative) 02/14/24 Ur Phencyclidine Scrn Negative ng/mL (Negative) 02/14/24 Ur Amphetamines Screen Negative ng/mL (Negative) 02/14/24 U Benzodiazepines Scrn Negative ng/mL (Negative) 02/14/24 Urine Cocaine Screen Negative ng/mL (Negative) 02/14/24 U Marijuana (THC) Screen Negative ng/mL (Negative) 02/14/24 Micro Urine Specimen 03/19/24 Pap Smear Interpret See note A 02/28/24 Prolactin 6.25 ng/mL (4.8-23.3) 12/22/22 A&P Assessment and plan (1) : 39 w 1 d GBS negative active labor, cervix at 7 cm fetus reassuring plan admit expectant management anticipate vaginal delivery Qualifiers: Weeks of gestation: 9 weeks Qualified Code(s): Z3A.09 - 9 weeks gestation of (2) H/O herpes genitalis: had episode of herpes outbreak at 28 weeks has been taking acyclovir 400 mg po daily no evidence of herpes outbreak Attestations Medical Necessity Statement*: patient at 39 w 1 d, presented with active labor Coding Level of Care Code Acute Code for Chg Fwd Diagnoses 9 weeks gestation of Z3A.09 Weeks of gestation: 9 weeks H/O herpes genitalis Z86.19 Time Spent (min) 30
[2024-09-06] MEDS: oxytocin 30 UNIT/500 ML BAG 600 UNIT IV (18:23)
--- NOTE | 2024-09-06 18:25 | PM.DELIVERY ---
Delivery Note: Date of delivery: September 06, 2024 Pre-delivery diagnoses: 39 w 1 d active labor; cervix at 7 cm h/o genital herpes, no active lesions Post-delivery diagnoses: 39 w 1 d active labor; cervix at 7 cm h/o genital herpes, no active lesions vaginal delivery Procedure: vaginal delivery Op report anesthesia: None Delivering Physician: Franck Hardwick MD Estimated blood loss (mL): 300 Findings: , vigorous normal placenta and cord cord blood obtained no episiotomy or lacerations EBL: 300 cc no complications Pre-Delivery Course: normal labor course Delivery: vaginal no lacerations Post-Delivery Status: good History History History 3 Term 1 0 Miscarriages/Ectopic 1 Living Children 1 A&P Assessment and plan (1) Vaginal delivery: Coding Level of Care Code Acute Code for Chg Fwd Diagnoses Vaginal delivery O80 Time Spent (min) 60
[2024-09-07] VITALS: BP 99/60; PULSE 73; RESP 18; TEMP 36.8
[2024-09-07 05:00] VITALS: BP 99/57; PULSE 86; RESP 18; TEMP 36.9
[2024-09-07 07:20] LABS: Hematocrit 33.5 % (36-47); Mean Corpuscular HGB Conc 33.1 g/dL (30-55); Mean Corpuscular Hemoglobin 30.3 pg (27-33); Mean Corpuscular Volume 91.5 fl (85-98); Mean Platelet Volume 9.9 fL (7.4-10.4); Platelet Count 213 10^3/cmm (157-399); Red Blood Count 3.66 10^6/uL (3.85-5.65); Red Cell Distribution Width 12.9 % (12.1-15.1); White Blood Count 16.48 10^3/uL (3.29-11.43)
[2024-09-07] MEDS: docusate sodium 100 mg Capsule PO (08:28)
[2024-09-07] MEDS: PRENATAL VIT NO.130/IRON/FOLIC 1 EACH TABLET PO (08:28)
[2024-09-07] MEDS: ibuprofen 800 mg tablet PO ×2 (08:29→16:02)
[2024-09-07 08:31] VITALS: BP 102/67; PULSE 81; RESP 16
[2024-09-07 13:10] VITALS: BP 112/72; PULSE 89; RESP 17
--- NOTE | 2024-09-07 14:55 | P.PN_ITS ---
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 Subjective: Interval history: no c/o no bleeding, pain eating, voiding, ambulating well caring for without any problems Labor: Station: +1 Amniotic Membrane Status: Ruptured Monitor Mode: Palpation Contraction Pattern: Regular Status: Category I Vitals/I&O/Wt Last Vital Signs Temp 98.4 F 09/07/24 05:00 Pulse 89 09/07/24 13:10 Resp 17 09/07/24 13:10 BP 112/72 09/07/24 13:10 O2 Del Method Room Air 09/06/24 18:49 09/06/24 09/07/24 09/07/24 22:59 06:59 14:59 Intake Total 616.05 / 616.05 Output Total 400 / 400 Balance 216.05 / 216.05 Weight last 48 hrs Weight 125 lb Physical Exam 2 Narrative: afebrile, VS normal comfortable, awake, alert Abd: soft, nontender. fundus firm Ext: no edema; nontender Data 09/07/24 06:35 A&P Assessment and plan (1) Vaginal delivery: PPD #1 doing well discharge to home today instructions and precautions given call/return if fever, chills, headache, blurry vision, nausea, vomiting, abdominal pain; vaginal bleeding or discharge; shortness of breath, chest pain, leg pains or swelling; inability to void, perineal pain or swelling; feelings of depression or mood changes; thoughts of suicide or harming others; inability to care for baby. f/u in 6 weeks or PRN Attestations 2 Medical Necessity Statement*: patient s/p vaginal delivery, plan to discharge to home today Coding Level of Care Code Acute Code for Chg Fwd Diagnoses Vaginal delivery O80 Time Spent (min) 20
--- NOTE | 2024-09-07 14:57 | P.DS_ITS ---
Discharge Providers ABATEMENT WORKER Date of Admission: 09/06/24 17:12 Date of Discharge: 09/07/24 Attending Provider at Admission: Christiano Real MD Attending Provider at Discharge: Franck Hardwick MD Consults: none Primary ABATEMENT WORKER: Franck Hardwick MD Primary Care Provider: Madhavi Be MD Diagnoses at Discharge Discharge Diagnosis (1) Vaginal delivery: Details from hospital stay: 24 y.o. A1 at 39 w 1 d presented with active labor fetus reassuring patient progressed rapidly to vaginal delivery without any complications, no lacerations patient had no complications and was discharged to home on the first day Status: Acute Reason for Visit Reason for Visit: contractions Brief History: 24 y.o. A1 at 39 w 1 d presented with active labor Hospital Course Hospital Course 24 y.o. A1 at 39 w 1 d presented with active labor fetus reassuring patient progressed rapidly to vaginal delivery without any complications, no lacerations patient had no complications and was discharged to home on the first day Information Peripartum Data: Delivery Method: Vaginal Laceration description: None Episiotomy description: None complications: none Physical Exam Narrative: afebrile, VS normal comfortable, awake, alert Abd: soft, nontender. fundus firm Ext: no edema; nontender History History History 3 Term 1 0 Miscarriages/Ectopic 1 Living Children 1 Discharge Data Studies Completed and Pending Laboratory Results WBC 16.48 10^3/uL (3.29-11.43) H 09/07/24 06:35 RBC 3.66 10^6/uL (3.85-5.65) L 09/07/24 06:35 Hgb 11.10 g/dL (11.27-16.99) L 09/07/24 06:35 Hct 33.5 % (36-47) L 09/07/24 06:35 MCV 91.5 fl (85-98) 09/07/24 06:35 MCH 30.3 pg (27-33) 09/07/24 06:35 MCHC 33.1 g/dL (30-55) 09/07/24 06:35 RDW 12.9 % (12.1-15.1) 09/07/24 06:35 Plt Count 213 10^3/cmm (157-399) 09/07/24 06:35 MPV 9.9 fL (7.4-10.4) 09/07/24 06:35 Neut % (Auto) 75.1 % 09/06/24 16:35 Lymph % (Auto) 17.0 % 09/06/24 16:35 [place] % (Auto) 5.8 % 09/06/24 16:35 Eos % (Auto) 0.8 % 09/06/24 16:35 Baso % (Auto) 0.2 % 09/06/24 16:35 Neut # (Auto) 11.74 10^3/uL (1.8-7.7) H 09/06/24 16:35 Lymph # (Auto) 2.7 10^3/uL (0.8-4.8) 09/06/24 16:35 [place] # (Auto) 0.9 10^3/uL (0.2-0.9) 09/06/24 16:35 Eos # (Auto) 0.1 10^3/uL (0.0-0.8) 09/06/24 16:35 Baso # (Auto) 0.0 10^3/uL (0.0-0.1) 09/06/24 16:35 Nucleated RBC % (auto) 0 % 09/06/24 16:35 Nucleated RBCs # 0.0 /100WBC 09/06/24 16:35 Blood Type O Positive 09/06/24 16:35 Rho(D) Type Rh positive 09/06/24 16:35 Antibody Screen Negative 09/06/24 16:35 Procedures Performed vaginal delivery Vitals Last Vital Signs Temp 98.4 F 09/07/24 05:00 Pulse 89 09/07/24 13:10 Resp 17 09/07/24 13:10 BP 112/72 09/07/24 13:10 O2 Del Method Room Air 09/06/24 18:49 Results Labs OB ([facility]): Obstetrics US 08/22/24 Blood Type O Positive 09/06/24 Antibody Screen Negative 09/06/24 Hct 33.5 % (36-47) L 09/07/24 Hgb 11.10 g/dL (11.27-16.99) L 09/07/24 Rho(D) Type Rh positive 09/06/24 Plt Count 213 10^3/cmm (157-399) 09/07/24 Hep Bs Antigen Non-reactive (Nonreactive) 02/14/24 Hepatitis C Antibody Non-reactive (Nonreactive) 02/14/24 Rubella IgG Antibody 10.3 IU/mL (0.0-10.0) H 02/14/24 HIV 1&2 Ab & HIV 1 Ag Non-reactive (Non-Reactiv) 02/14/24 TSH 1.90 uIU/mL (0.27-4.20) 02/14/24 Free T4 1.08 ng/dL (0.82-1.77) 02/14/24 C.trachomatis RNA (TMA) Not detected (NOT DETECTED) N.gonorrhoeae RNA (TMA) Not detected (NOT DETECTED) T. vaginalis Amp RNA Not detected (NOT DETECTED) 02/14/24 Chlamydia/GC Comment See note 02/14/24 Gest Glucose Tolerance 92 mg/dL (70-139) 06/20/24 Hemoglobin A1c 4.7 % (4.0-6.0) 12/21/22 Ser , Semi-Qnt 1.00 mIU/mL 12/22/22 HCG, Qual Positive (Negative) H 01/31/24 Urine Opiates Screen Negative ng/mL (Negative) 02/14/24 Ur Barbiturates Screen Negative ng/mL (Negative) 02/14/24 Ur Phencyclidine Scrn Negative ng/mL (Negative) 02/14/24 Ur Amphetamines Screen Negative ng/mL (Negative) 02/14/24 U Benzodiazepines Scrn Negative ng/mL (Negative) 02/14/24 Urine Cocaine Screen Negative ng/mL (Negative) 02/14/24 U Marijuana (THC) Screen Negative ng/mL (Negative) 02/14/24 Micro Urine Specimen 03/19/24 Pap Smear Interpret See note A 02/28/24 Prolactin 6.25 ng/mL (4.8-23.3) 12/22/22 Discharge Plan Discharge Patient Disposition: Home Condition: Stable Prescriptions: Continued Classic 28 mg iron- 800 mcg tablet 1 tab PO DAILY acetaminophen [Tylenol] 325 mg capsule 325 mg PO QID PRN (Reason: Pain) lidocaine 5 % cream 1 applic topical BID PRN (Reason: pain) Qty: 14.17 0RF diphenhydramine HCl [Benadryl Allergy] 25 mg tablet 25 mg PO ONCE PRN (Reason: Allergy Symptoms) sertraline [Zoloft] 25 mg tablet 25 mg PO DAILY Qty: 30 12RF Discharge Orders: Discharge Order (Routine); Ordered 09/07/24 Ordered By: Franck Hardwick Discharge Diet: Usual diet Discharge Activity: Increase activity as tolerated Patient Instructions: Opioid Safety Discharge Attestations ABATEMENT WORKER Time Spent in Discharge Care*: less than 30 min Coding Level of Care Code Acute Code for Chg Fwd Diagnoses Vaginal delivery O80 Time Spent (min) 20
[2024-09-07 16:03] VITALS: BP 95/63; PULSE 87; TEMP 36.8
[2024-09-07] MEDS: lanolin oint 7 gm 1 APPLIC TOPICAL (18:56)
[2024-09-07 20:00] VITALS: BP 114/76; PULSE 98; RESP 18; TEMP 36.8
== END 2024-09-07 20:05 | disposition home or self-care (01) | DRG 807 ==
LOC: OPOB 17:12 → OBGYN 17:12
PROVIDERS: Admitting Provider Obstetrics & Gynecology; PCP Family Medicine; Visit Provider Obstetrics & Gynecology
DX: O98.32 Other infections with a predominantly sexual mode of transmission complicating childbirth (principal); Z37.0 Single live birth; A60.00 Herpesviral infection of urogenital system, unspecified; Z3A.39 39 weeks gestation of pregnancy; O99.344 Other mental disorders complicating childbirth; F41.9 Anxiety disorder, unspecified
CPT/HCPCS: 36415; 59409; 85025; 85027; 86850; 86900; 98960; J2590; J7120

== ENCOUNTER 2024-10-05 21:48 | Emergency (ER) | payer BC, MEDICAID, SELFPAY ==
[2024-10-05 21:53] VITALS: BP 102/64; PULSE 132; RESP 17; TEMP 37.1; O2SAT 96; BMI 22.6
[2024-10-05 22:15] VITALS: BP 104/63; PULSE 100; RESP 16; O2SAT 97
--- NOTE | 2024-10-05 22:17 | XRR_ITS ---
PROCEDURE INFORMATION: Exam: XR Chest Exam date and time: 10/05/2024 10:22 PM Age: 24 years old Clinical indication: Patient HX: C/O fever TECHNIQUE: Imaging protocol: Radiologic exam of the chest. Views: 1 view. COMPARISON: CR XR chest 1V portable [id number] 09/01/2020 11:54 PM FINDINGS: Lungs: Unremarkable. No consolidation. Pleural spaces: Unremarkable. No pleural effusion. No pneumothorax. Heart/Mediastinum: Unremarkable. No cardiomegaly. Bones/joints: Unremarkable. XR/XR chest 1V portable [id number] IMPRESSION: No acute findings.
--- NOTE | 2024-10-05 22:19 | W.ED.FEVER ---
HPI - Fever General: Chief Complaint: Fever Stated Complaint: fever 106 headache Time Seen by Provider: 10/05/24 22:01 Source: patient Mode of arrival: ambulatory Limitations: no limitations History of Present Illness: 24-year-old female who states that she has had a fever today states she had a fever at home she taken Tylenol before arriving here she is afebrile here. States has been having some headaches body aches and just not feeling well. She did give 1 month ago was breast-feeding she states she had some bilateral breast tenderness as well denies any redness. She denies any cough denies any vomiting or diarrhea denies any pelvic pain Associated symptoms: Reports headache(s); Deny abdominal pain, chills, chest pain, diarrhea, dysuria, nausea or vomiting Related Data Home Medications Medication Instructions Recorded Confirmed vits no.126-ferrous fum 1 tab PO DAILY 01/31/24 09/06/24 28 mg iron-folic acid 800 mcg tablet (Classic ) acetaminophen 325 mg capsule 325 mg PO QID PRN Pain 02/14/24 09/06/24 (Tylenol) diphenhydramine HCl 25 mg tablet 25 mg PO ONCE PRN Allergy Symptoms 08/06/24 09/06/24 (Benadryl Allergy) Previous Rx's Medication Instructions Recorded lidocaine 5 % topical cream 1 applic topical BID PRN pain 02/14/24 #14.17 grams sertraline 25 mg tablet (Zoloft) 25 mg PO DAILY #30 tabs 03/29/24 Allergies Allergy/AdvReac Type Severity Reaction Status Date / Time alcohol AdvReac Unknown She said Verified 10/05/24 21:53 she can feel a reaction in her throat. 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 Denies any problems since then. Surgical History History of orthopedic surgery 2019-fracture of left lower leg which was repaired surgically. History of intestinal surgery (~2000) born with gastroschisis--- had 3 abdominal surgeries to repair this when she was under 2-year-old. Denies any residual problems. Family History Mother Diabetes Hyperlipidemia Hypertension Denies family history of Colon cancer Ovarian cancer Heart disease Breast cancer Family history of thyroid problem Uterine cancer Stroke Social History Smoking and tobacco/nicotine status: never used tobacco/nicotine Substance/Drug Use: never Additional social history: - Female Reproductive History: Date of last menstrual period: 10/05/24 Physical Exam Const: COMMON NORMALS: no acute distress, patient oriented x3 and healthy appearing HENMT: COMMON NORMALS: normocephalic and atraumatic HEAD & SCALP: normocephalic and atraumatic Eye: COMMON NORMALS: Equal, round and reactive pupils present and EOMs intact bilaterally PUPIL: Yes Equal, round and reactive pupils present Neck/C-Spine: COMMON NORMALS: full ROM, supple and no meningeal signs Chest: COMMONS NORMALS: normal inspection of the chest, normal palpation of entire chest wall, normal inspection of the breasts and normal palpation of the breasts Breast/axilla inspection: Yes normal inspection of the breasts BREAST/AXILLA PALPATION: Yes normal palpation of the breasts Resp: COMMON NORMALS: normal respiratory effort, No retractions, No use of accessory muscles and clear to auscultation bilaterally AUSCULTATION: clear to auscultation bilaterally Cardio: COMMON NORMALS: regular rate, regular rhythm and No murmurs present (Cardio) RATE: regular rate RHYTHM: regular rhythm GI: COMMON NORMALS: Normal to inspection, nondistended, normoactive bowel sounds present, Soft to palpation, non-tender and no masses PALPATION: Yes Soft to palpation Extremity: COMMON NORMALS: normal to inspection and full ROM Neuro: COMMON NORMALS: patient oriented x3, moves all extremities and no focal motor deficits MENINGEAL SIGNS: Yes no meningeal signs Psych: COMMON NORMALS: mental status grossly normal, Normal thought process present and cooperative THOUGHT PROCESS: Normal thought process present Skin: COMMON NORMALS: no rashes or lesions noted and no wounds GENERAL SKIN EXAM: no rashes or lesions noted Course Vital Signs: Vital signs: Vital Signs Temperature 98.8 F 10/05/24 21:53 Pulse Rate 132 H 10/05/24 21:53 Respiratory Rate 17 10/05/24 21:53 Blood Pressure 102/64 10/05/24 21:53 Pulse Oximetry 96 10/05/24 21:53 Oxygen Delivery Me thod Room Air, Nasal C annula 10/05/24 21:53 MDM - Fever Medical Decision Making Patient presents here with headache she also had a fever at home she had been afebrile here blood work here is normal she feels much improved after Toradol and fluids her heart rates improved as well is currently in the 80s. She has no signs of meningitis she is follow-up with PCP return if worsening Medical Records I reviewed the patient's medical records. Lab Data I reviewed the patient's lab results. 10/05/24 22:22 10/05/24 22:22 Radiology Impressions Chest X-Ray 10/05/24 22:17 IMPRESSION: No acute findings. Laboratory Results WBC 11.94 10^3/uL (3.29-11.43) H 10/05/24 22: RBC 4.19 10^6/uL (3.85-5.65) 10/05/24 22:22 Hgb 12.60 g/dL (11.27-16.99) 10/05/24 22: Hct 38.1 % (36-47) 10/05/24 22: MCV 90.9 fl (85-98) 10/05/24 22: MCH 30.1 pg (27-33) 10/05/24 22: MCHC 33.1 g/dL (30-55) 10/05/24 22: RDW 11.7 % (12.1-15.1) L 10/05/24 22:22 Plt Count 204 10^3/cmm (157-399) 10/05/24: MPV 9.4 fL (7.4-10.4) 10/05/24: Neut % (Auto) 85.9 % 10/05/24: Lymph % (Auto) 7.8 % 10/05/24: [place] % (Auto) 5.5 % 10/05/24: Eos % (Auto) 0.3 % 10/05/24: Baso % (Auto) 0.2 % 10/05/24: Neut # (Auto) 10.25 10^3/uL (1.8-7.7) H 10/05/24: Lymph # (Auto) 0.9 10^3/uL (0.8-4.8) 10/05/24: [place] # (Auto) 0.7 10^3/uL (0.2-0.9) 10/05/24: Eos # (Auto) 0.0 10^3/uL (0.0-0.8) 10/05/24: Baso # (Auto) 0.0 10^3/uL (0.0-0.1) 10/05/24: Nucleated RBC % (auto) 0 % 10/05/24: Nucleated RBCs # 0.0 /100WBC 10/05/24 22: Sodium 137 mmol/L (136-145) 10/05/24 22: Potassium 3.7 mmol/L (3.5-5.1) 10/05/24: Chloride 100 mmol/L (98-107) 10/05/24 22: Carbon Dioxide 22 mmol/L (22-29) 10/05/24 22: Anion Gap 18.7 (5-19) 10/05/24 22: BUN 13 mg/dL (6-20) 10/05/24 22: Creatinine 0.7 mg/dL (0.5-0.9) 10/05/24 22: GFR Calculation 103.7 mL/min (90-130) 10/05/24 22: Glucose 118 mg/dL (65-115) H 10/05/24 22: Calculated Osmolality 285 mOsm/kg (285-295) 10/05/24 22: Calcium 8.7 mg/dL (8.5-10.5) 10/05/24 22: Total Bilirubin 0.3 mg/dL (0.15-1.2) 10/05/24 22:22 AST 15 U/L (0-32) 10/05/24 22: ALT 15 U/L (0-33) 10/05/24 22:22 Alkaline Phosphatase 110 U/L (35-105) H 10/05/24 22:22 C-Reactive Protein 9.4 mg/L (0.0-4.9) H 10/05/24 22:22 Total Protein 6.8 g/dL (6.6-8.7) 10/05/24 22: Albumin 4.1 g/dL (3.5-5.2) 10/05/24 22: Globulin 2.7 g/dL (1.3-4.6) 10/05/24 22: Urine Color Yellow (Yellow) 10/05/24 23:01 Urine Appearance Clear (CLEAR) 10/05/24 23:01 Urine pH 5.5 (5-7) 10/05/24 23:01 Ur Specific [place] 1.031 (1.005-1.030) H 10/05/24 23:01 Urine Protein Trace (Negative) A 10/05/24 23: Urine Glucose (UA) Negative (Normal) 10/05/24 23:01 Urine Ketones 1+ (Negative) H 10/05/24 23:01 Urine Blood 2+ (Negative) A 10/05/24 23: Urine Nitrate Negative (Negative) 10/05/24 23:01 Urine Bilirubin Negative (Negative) 10/05/24 23:01 Urine Urobilinogen 1.0 mg/dL (Negative) 10/05/24 23:01 Ur Leukocyte Esterase Negative (Negative) 10/05/24 23:01 Urine RBC 11-20 /hpf (0-2) H 10/05/24 23:01 Urine WBC 6-10 /hpf (0-5) 10/05/24 23:01 Ur Squamous Epith Cells 6-10 /hpf (0-5) 10/05/24 23:01 Amorphous Sediment Not Reportable 10/05/24 23:01 Urine Bacteria None seen /hpf (NONE) 10/05/24 23:01 Hyaline Casts 0.40 /lpf 10/05/24 23:01 Coronavirus (PCR) Negative (Negative) 10/05/24 23:01 Influenza A (PCR) Negative (Negative) 10/05/24 23:01 Influenza Type B (PCR) Negative (Negative) 10/05/24 23:01 RSV (PCR) Negative (Negative) 10/05/24 23:01 All radiology interpretation(s) finalized by discharge Discharge Plan Discharge Patient Disposition: Home Clinical Impression: Headache Condition: Stable Prescriptions: No Action Classic 28 mg iron- 800 mcg tablet 1 tab PO DAILY acetaminophen [Tylenol] 325 mg capsule 325 mg PO QID PRN (Reason: Pain) lidocaine 5 % cream 1 applic topical BID PRN (Reason: pain) Qty: 14.17 0RF diphenhydramine HCl [Benadryl Allergy] 25 mg tablet 25 mg PO ONCE PRN (Reason: Allergy Symptoms) sertraline [Zoloft] 25 mg tablet 25 mg PO DAILY Qty: 30 12RF Discharge Orders: Discharge ED (Routine); Ordered 10/05/24 Ordered By: Dee Dee Velez Discharge Diet: Advance as tolerated Discharge Activity: Resume usual activity Patient Instructions: Acute Headache (ED) Coding Level of Care Code ED Demand Equipment Repairer for Gonsalo Velez
[2024-10-05 22:30] VITALS: BP 99/66; PULSE 98; O2SAT 98
[2024-10-05 22:30] LABS: Basophils % 0.2 %; Eosinophils % 0.3 %; Hematocrit 38.1 % (36-47); Lymphocytes # 0.9 10^3/uL (0.8-4.8); Lymphocytes % 7.8 %; Mean Corpuscular HGB Conc 33.1 g/dL (30-55); Mean Corpuscular Hemoglobin 30.1 pg (27-33); Mean Corpuscular Volume 90.9 fl (85-98); Mean Platelet Volume 9.4 fL (7.4-10.4); Monocytes # 0.7 10^3/uL (0.2-0.9); Monocytes % 5.5 %; Neutrophils # 10.25 10^3/uL (1.8-7.7); Neutrophils % 85.9 %; Nucleated Red Blood Cells % 0 %; Platelet Count 204 10^3/cmm (157-399); Red Blood Count 4.19 10^6/uL (3.85-5.65); Red Cell Distribution Width 11.7 % (12.1-15.1); White Blood Count 11.94 10^3/uL (3.29-11.43)
[2024-10-05 22:45] LABS: Alanine Aminotransferase 15 U/L (0-33); Albumin Level 4.1 g/dL (3.5-5.2); Alkaline Phosphatase 110 U/L (35-105); Anion Gap 18.7 (5-19); Aspartate Amino Transferase 15 U/L (0-32); Blood Urea Nitrogen 13 mg/dL (6-20); Calcium 8.7 mg/dL (8.5-10.5); Carbon Dioxide 22 mmol/L (22-29); Chloride 100 mmol/L (98-107); Creatinine Clr Calc Pharmacy 100.2432; Globulin 2.7 g/dL (1.3-4.6); Glomerular Filtration Rate 103.7 mL/min (90-130); Glucose 118 mg/dL (65-115); Osmolality Calculated 285 mOsm/kg (285-295); Potassium 3.7 mmol/L (3.5-5.1); Sodium 137 mmol/L (136-145); Total Bilirubin 0.3 mg/dL (0.15-1.2); Total Protein 6.8 g/dL (6.6-8.7)
[2024-10-05] MEDS: sodium chloride 0.9% 1,000 ML 999 ML IV (22:46)
[2024-10-05] MEDS: ketorolac 30 mg/mL INJ IVP (22:49)
[2024-10-05 23:00] LABS: C Reactive Protein 9.4 mg/L (0.0-4.9)
--- NOTE | 2024-10-05 23:03 | PC.NURSE ---
upon using the restroom pt notified this RN of vaginal bleeding. pt states she has had intercourse already since before being cleared by OBGYN. pt denies vaginal bleeding prior to this for 2 weeks. notified
[2024-10-05 23:09] LABS: Bilirubin Urine Negative (Negative); Blood Urine 2+ (Negative); Glucose Urine UA Negative (Normal); Ketones Urine 1+ (Negative); Leukocyte Esterase Urine Negative (Negative); Nitrate Urine Negative (Negative); Protein Urine Trace (Negative); Urine Appearance Clear (CLEAR); Urine Color Yellow (Yellow); pH Urine 5.5 (5-7)
[2024-10-05 23:14] LABS: Add Urine Microscopic? YES; Bacteria Urine None Seen /hpf
[2024-10-05 23:16] LABS: Specific Gravity, Urine 1.031 (1.005-1.030)
[2024-10-05 23:44] LABS: Covid PCR NEGATIVE (Negative); Influenza A NEGATIVE (Negative); Influenza B NEGATIVE (Negative); Respiratory Syncytial Virus Ce NEGATIVE (Negative)
[2024-10-06] VITALS: PULSE 106; TEMP 36.3; O2SAT 98
[2024-10-06 00:01] VITALS: PULSE 118; O2SAT 97
[2024-10-06 00:05] VITALS: BP 109/64; PULSE 101; RESP 18; O2SAT 98
== END 2024-10-06 00:13 | disposition home or self-care (01) ==
PROVIDERS: Emergency Provider Emergency Medicine
DX: R51.9 Headache, unspecified (principal); Z11.52 Encounter for screening for COVID-19
CPT/HCPCS: 0241U; 36415; 71045; 80053; 81001; 85025; 86140; 96361; 96374; 99284; J1885; J7030

== ENCOUNTER → 2024-10-17 13:59 | Outpatient (BNVA) | payer BC, MEDICAID, SELFPAY | PROVIDERS: Visit Provider Nurse Practitioner Women's Health | DX: Z30.430 Encounter for insertion of intrauterine contraceptive device (principal) | CPT/HCPCS: 81025 ==

== ENCOUNTER → 2025-03-12 10:38 | Outpatient (BNVA) | payer BC, MEDICAID, SELFPAY | PROVIDERS: PCP Nurse Practitioner Family; Visit Provider Nurse Practitioner Family | DX: Z72.51 High risk heterosexual behavior (principal) | CPT/HCPCS: 81000; 87491; 87591; 87661 ==

== ENCOUNTER → 2025-10-17 16:01 | Outpatient (BNVA) | payer BC, MEDICAID, SELFPAY | PROVIDERS: PCP Nurse Practitioner Family; Visit Provider Nurse Practitioner Women's Health | DX: Z12.4 Encounter for screening for malignant neoplasm of cervix (principal) | CPT/HCPCS: 87624 ==